=== PATIENT | female | born 1925 | race Caucasian/White ===

== ENCOUNTER 2016-03-17 11:34 | Emergency (ER) | payer MEDICARE ==
[~2016-03-17] VITALS: Ht 154.9 cm; Wt 64.0 kg
[2016-03-17 11:41] VITALS: BP 144/100; PULSE 88; RESP 16; TEMP 97.5; O2SAT 98
[2016-03-17] MEDS ORDERED: TETANUS/DIPHTHERIA TOXOID ADULT 0.5 ML VIAL IM ONE (12:00)
[2016-03-17] MEDS ORDERED: COMB0.2S EACH EYE (12:07)
[2016-03-17] MEDS ORDERED: SYNT25TA PO (12:07)
[2016-03-17] MEDS ORDERED: LATA0.002 EACH EYE (12:07)
--- NOTE | 2016-03-17 12:29 | PD ---
HPI Chief Complaint: Laceration/Skin Injury Time Seen by Provider: 12:26 Travel History International Travel<30 days: No Contact w/Intl Traveler<30days: No Traveled to known affect area: No History of Present Illness HPI 89-year-old female presents to the emergency room for evaluation of head injury after trip and fall just prior to arrival. Patient's son is with her and states she tripped either on her slippers or on the blanket and fell backwards striking her head on the aluminum door rail or the tile floor. He did not actually see the fall but was in the next room and immediately ran in. States he was able to get her back up right away and so down on the chair. There was no loss of consciousness. Patient denies significant headache, dizziness, or changes in mental status. Reports mild neck pain but denies paresthesias. She is not on blood thinners. Unknown last tetanus. Denies hip pain, back pain, and upper and lower extremity pain. PFSH Past Medical History Hx Anticoagulant Therapy: No Glaucoma: Yes Thyroid Disease: Yes Influenza Vaccination: No ?: Not Menopausal: Yes Past Surgical History Surgical History: No Previous Surgery Social History Alcohol Use: No Tobacco Use: No Substance Use: No Allergies-Medications (Allergen,Severity, Reaction): Coded Allergies: No Known Allergies (Unverified , 03/17/16) Reported Meds & Prescriptions Reported Meds & Active Scripts Active Reported Latanoprost Opth Drops (Latanoprost) 0.005% Drops 1 Drop EACH EYE HS Refrigerate until opened. Combigan Opth Drops (Brimonidine-Timolol Opth Drops) 0.2-0.5% Soln 1 Drop EACH EYE Q12HR Synthroid (Levothyroxine Sodium) 25 Mcg Tab 25 Mcg PO DAILY Review of Systems Except as stated in HPI: all other systems reviewed are Neg Physical Exam Narrative GENERAL: Well-nourished, well-developed female in no acute distress. Afebrile. Ambulatory. SKIN: Warm and dry. There is a large hematoma in the occipital scalp with a superficial abrasion. HEAD: Normocephalic. EYES: No scleral icterus. No injection or drainage. NECK: Supple, trachea midline. No JVD or lymphadenopathy. Full range of motion. No midline tenderness. MSK: Hips stable. No tenderness to palpation. No shortening or rotation of lower extremities. Data Data Last Documented VS Vital Signs Date Time Temp Pulse Resp B/P Pulse Ox O2 Delivery O2 Flow Rate FiO2 03/17/16 11:41 97.5 88 16 144/[address] Brain W/O Iv Contrast(Rout) (03/17/16 ) Ct Cerv Spine W/O Contrast (03/17/16 ) Tetanus/Diphtheria Tox Adult (Tetanus/Di (03/17/16 12:00) Wound Care (03/17/16 12:41) MDM Medical Decision Making Medical Screen Exam Complete: Yes Emergency Medical Condition: Yes Medical Record Reviewed: Yes Differential Diagnosis Head injury versus hematoma versus laceration versus abrasion versus fall Narrative Course 89-year-old female presents to the emergency room for evaluation of closed head injury after trip and fall just prior to arrival. Fall was not witnessed but son was in the next room and immediately found her. States she either tripped on her shoes or a bunched up blanket on the floor; fell backwards and struck the back of her head against the aluminum framing of the door. She was able to get up right away. There was no loss of consciousness. She denies significant headache, nausea, vomiting, retrograde amnesia, or changes in mental status. She is not on blood thinners. Physical exam is reassuring. There is a large hematoma on the occipital scalp. Full range motion of the neck with no midline tenderness. CT of the head and neck are negative for acute abnormality. Wound was thoroughly cleansed; it is a superficial abrasion. Patient updated on tetanus. Discharged with wound care instructions and told to follow up with a primary care physician or return to the emergency room for worsening symptoms. She understands and agrees to this plan. Diagnosis Primary Impression: Closed head injury Qualified Code: S09.90XA - Closed head injury, initial encounter Additional Impressions: Hematoma Fall Qualified Code: W19.XXXA - Fall, initial encounter Referrals: Primary Care Physician Patient Instructions: General Instructions, Head Injury (ED), Hematoma (ED) Additional Instructions: Rest and drink plenty of fluids. Take Tylenol with food as directed, as needed for pain. Apply ice to the affected area for 20 minutes at a time, as needed for pain and swelling. Follow-up with a primary care physician. Return to the emergency room for worsening symptoms. Disposition: 01 DISCHARGE HOME Condition: Stable Genie Arreguin Mar 17, 2016 12:29
--- NOTE | 2016-03-17 12:50 | RADHPO ---
EXAM DATE/TIME: 03/17/2016 12:05 [facility] COMPARISON: No previous studies available for comparison. INDICATIONS : Fall today, laceration to posterior head. RADIATION DOSE: 25.10 CTDIvol (mGy) MEDICAL HISTORY : None SURGICAL HISTORY : None. ENCOUNTER: Initial ACUITY: 1 day PAIN SCALE: 3/10 LOCATION: Bilateral neck TECHNIQUE: Volumetric scanning of the cervical spine was performed. Multiplanar reconstructions in the sagittal, coronal and oblique axial planes were performed. Using automated exposure control and adjustment o f the mA and/or kV according to patient size, radiation dose was kept as low as reasonably achievable to obtain optimal diagnostic quality images. FINDINGS: VERTEBRAE: Normal vertebral body height. Increased density throughout the cervical spine ALIGNMENT: No evidence of subluxation. C2-C3: The bony spinal canal is normal in size. No evidence of disc bulge or herniation. The neural forami na are bilaterally patent. C3-C4: The bony spinal canal is normal in size. No evidence of disc bulge or herniation. The neural forami na are bilaterally patent. C4-C5: The bony spinal canal is normal in size. No evidence of disc bulge or herniation. The neural forami na are bilaterally patent. C5-C6: The bony spinal canal is normal in size. No evidence of disc bulge or herniation. The neural forami na are bilaterally patent. C6-C7: The bony spinal canal is normal in size. No evidence of disc bulge or herniation. The neural forami na are bilaterally patent. C7-T1: The bony spinal canal is normal in size. No evidence of disc bulge or herniation. The neural forami na are bilaterally patent. CONCLUSION: Normal examination. Marked increased density throughout the cervical bony spine. Jake Melara MD on March 17, 2016 at 12:47 Board Certified Radiologist. This report was verified electronically.
--- NOTE | 2016-03-17 12:53 | RADHPO ---
EXAM DATE/TIME: 03/17/2016 12:05 [facility] COMPARISON: No previous studies available for comparison. INDICATIONS : Fall today, laceration to posterior head. RADIATION DOSE: 55.42 CTDIvol (mGy) MEDICAL HISTORY : None SURGICAL HISTORY : None. ENCOUNTER: Initial ACUITY: 1 day PAIN SCALE: 5/10 LOCATION: posterior head TECHNIQUE: Multiple contiguous axial images were obtained of the head. Using automated exposure control and adj ustment of the mA and/or kV according to patient size, radiation dose was kept as low as reasonably a chievable to obtain optimal diagnostic quality images. FINDINGS: Non-contrast head CT demonstrates there is a subcutaneous hematoma in the right occipital region. In tracranially, the exam is normal except for diffuse age related atrophy. There may be a tiny old lac unar infarct in the left thalamus. No subarachnoid or subdural hematoma is identified. There is no i ntraparenchymal hemorrhage. The sinuses are clear. CONCLUSION: Subuctaneous hematoma in the right occipital region. Intracranial atrophy but no evidence of acute i ntracranial hemorrhage. Bilateral lacunar infarcts left thalamus and the right caudate lobe. Jake Melara MD on March 17, 2016 at 12:47 Board Certified Radiologist. This report was verified electronically.
== END 2016-03-17 13:26 | disposition home or self-care (01) ==
LOC: PHEFT 11:34
DX: S09.90XA Unspecified injury of head, initial encounter (principal); S00.03XA Contusion of scalp, initial encounter; S00.01XA Abrasion of scalp, initial encounter; E07.9 Disorder of thyroid, unspecified; H40.9 Unspecified glaucoma; Z23 Encounter for immunization; W18.09XA Striking against other object with subsequent fall, initial encounter; Y92.89 Other specified places as the place of occurrence of the external cause
CPT/HCPCS: 70450; 72125; 90471; 90714

== ENCOUNTER 2016-03-25 15:17 | Inpatient (IN) | payer MEDICARE ==
[2016-03-25] VITALS (11 sets, daily range): BP systolic 152–193; BP diastolic 58–119; PULSE 61–90; RESP 16–20; TEMP 97.1; O2SAT 90–97
[~2016-03-25] VITALS: Ht 162.6 cm; Wt 37.5 kg
[~2016-03-25 15:17] MED LIST: COMB0.2S EACH EYE; LATA0.002 EACH EYE; SYNT25TA PO
--- NOTE | 2016-03-25 16:54 | PD ---
HPI Chief Complaint: Fall Time Seen by Provider: 16:34 Travel History International Travel<30 days: No Contact w/Intl Traveler<30days: No Traveled to known affect area: No History of Present Illness HPI 89y F with PMH of myelodysplasia s/p 2 units of transfusion 02/24/16, hypothyroidism, mitral valve repair, glaucoma presents to the ED with c/o fall and head trauma today. Pt thinks she tip and fell on left side of head. Denies any LOC. Pt has also been more sob for last 10 days. Saturating at 88- 89% on RA. States she feels more short of breath with walking and that is new. Denies any chest pain, dizziness, n/v, abdominal pain, focal weakness or numbness. Pt was seen here on 03/17/16 for a fall and had hematoma in occiput from that fall. Pt was discharged after negative CT scan and follow up with her blood physician 4 days ago. 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 PFSH Past Medical History Hx Anticoagulant Therapy: No Glaucoma: Yes Medical other: Yes (EARLY ONSET DEMENTIA) Thyroid Disease: Yes ?: Not Menopausal: Yes Social History Alcohol Use: No Tobacco Use: No Substance Use: No Allergies-Medications (Allergen,Severity, Reaction): Coded Allergies: No Known Allergies (Unverified , 03/25/16) Reported Meds & Prescriptions Reported Meds & Active Scripts Active Reported Latanoprost Opth Drops (Latanoprost) 0.005% Drops 1 Drop EACH EYE HS Refrigerate until opened. Combigan Opth Drops (Brimonidine-Timolol Opth Drops) 0.2-0.5% Soln 1 Drop EACH EYE Q12HR Synthroid (Levothyroxine Sodium) 25 Mcg Tab 25 Mcg PO DAILY Review of Systems Except as stated in HPI: all other systems reviewed are Neg Physical Exam Narrative GENERAL: 89yo F in mild distress. SKIN: Warm and dry. HEAD: mid occipital hematoma that looks old. No new hematoma. EYES: Pupils equal and round. No scleral icterus. No injection or drainage. ENT: No nasal bleeding or discharge. Mucous membranes pink and moist. NECK: Trachea midline. No JVD. CARDIOVASCULAR: Regular rate and rhythm. No murmur appreciated. RESPIRATORY: Mild bilateral crackles. Saturating at 88-89% on RA. GASTROINTESTINAL: Abdomen soft, non-tender, nondistended. No rebound tenderness or guarding. MUSCULOSKELETAL: No obvious deformities. No clubbing. No cyanosis. Trace lower ext edema. NEUROLOGICAL: Awake and alert. No obvious cranial nerve deficits. Motor grossly within normal limits. Normal speech. PSYCHIATRIC: Appropriate mood and affect; insight and judgment normal. Data Data Last Documented VS Vital Signs Date Time Temp Pulse Resp B/P Pulse Ox O2 Delivery O2 Flow Rate FiO2 03/25/16 18:23 86 20 176/76 95 03/25/16 17:45 Nasal Cannula 2 03/25/16 15:29 97.1 Orders Complete Blood Count With Diff (03/25/16 16:49) Basic Metabolic Panel (Bmp) (03/25/16 16:49) B-Type Natriuretic Peptide (03/25/16 16:49) Act Partial Throm Time (Ptt) (03/25/16 16:49) Prothrombin Time / Inr (Pt) (03/25/16 16:49) Ckmb (Isoenzyme) Profile (03/25/16 16:49) Troponin I (03/25/16 16:49) Arterial Blood Gas (Abg) (03/25/16 16:49) Iv Access Insert/Monitor (03/25/16 16:49) Electrocardiogram (03/25/16 16:49) Ecg Monitoring (03/25/16 16:49) Oximetry (03/25/16 16:49) Oxygen Administration (03/25/16 16:49) Chest, Single Ap (03/25/16 16:49) Sodium Chloride 0.9% Flush (Ns Flush) (03/25/16 17:00) Ct Brain W/O Iv Contrast(Rout) (03/25/16 ) Hydralazine Inj (Apresoline Inj) (03/25/16 18:30) Furosemide Inj (Lasix Inj) (03/25/16 18:45) Potassium Chloride (Kcl) (03/25/16 18:45) Calcium Gluconate (Calcium Gluconate) (03/25/16 18:45) Admit Order (Ed Use Only) (03/25/16 18:32) Labs Laboratory Tests Test 03/25/16 03/25/16 17:00 17:04 White Blood Count 17.2 TH/MM3 Corrected White Blood Count 16.4 TH/MM3 Red Blood Count 3.04 MIL/MM3 Hemoglobin 8.7 GM/DL Hematocrit 26.3 % Mean Corpuscular Volume 86.3 FL Mean Corpuscular Hemoglobin 28.7 PG Mean Corpuscular Hemoglobin 33.3 % Concent Red Cell Distribution Width 18.0 % Platelet Count 314 TH/MM3 Mean Platelet Volume 7.3 FL Neutrophils (%) (Auto) 70.5 % Lymphocytes (%) (Auto) 10.2 % Monocytes (%) (Auto) 14.6 % Eosinophils (%) (Auto) 0.9 % Basophils (%) (Auto) 3.8 % Neutrophils # (Auto) 12.0 TH/MM3 Lymphocytes # (Auto) 1.8 TH/MM3 Monocytes # (Auto) 2.5 TH/MM3 Eosinophils # (Auto) 0.2 TH/MM3 Basophils # (Auto) 0.7 TH/MM3 CBC Comment AUTO DIFF Differential Total Cells 100 Counted Neutrophils % (Manual) 44 % Band Neutrophils % 25 % Lymphocytes % 6 % Monocytes % 9 % Eosinophils % 1 % Neutrophils # (Manual) 13.8 TH/MM3 Metamyelocytes 8 % Myelocytes 7 % Nucleated Red Blood Cells 5 /100 WBC Differential Comment FINAL DIFF MANUAL Platelet Estimate NORMAL Platelet Morphology Comment NORMAL Prothrombin Time 11.8 SEC Prothromb Time International 1.1 RATIO Ratio Activated Partial 25.0 SEC Thromboplast Time Sodium Level 142 MEQ/L Potassium Level 3.6 MEQ/L Chloride Level 107 MEQ/L Carbon Dioxide Level 25.0 MEQ/L Anion Gap 10 MEQ/L Blood Urea Nitrogen 20 MG/DL Creatinine 0.62 MG/DL Estimat Glomerular Filtration 91 ML/MIN Rate Random Glucose 102 MG/DL Calcium Level 7.9 MG/DL Total Creatine Kinase 56 U/L Troponin I 0.09 NG/ML B-Type Natriuretic Peptide 715 PG/ML Blood Gas Puncture Site RT RADIAL Blood Gas Patient Temperature 98.6 Blood Gas HCO3 23 mmol/L Blood Gas Base Excess 0.3 mmol/L Blood Gas Oxygen Saturation 92 % Arterial Blood pH 7.50 Arterial Blood Partial 31 mmHG Pressure CO2 Arterial Blood Partial 85 mmHG Pressure O2 Arterial Blood Oxygen Content 10.5 Vol % Arterial Blood 2.9 % Carboxyhemoglobin Arterial Blood Methemoglobin 1.3 % Blood Gas Hemoglobin 8.0 G/DL Oxygen Delivery Device NASAL CANNULA Blood Gas Liter Flow 2 L/M Blood Gas Inspired Oxygen 28 % MDM Medical Decision Making Medical Screen Exam Complete: Yes Emergency Medical Condition: Yes Interpretation(s) EKG: NSR 76bpm. ST depression II, aVF, V5, V6. Q wave III. Laboratory Tests Test 03/25/16 03/25/16 17:00 17:04 White Blood Count 17.2 TH/MM3 (4.0-11.0) Corrected White Blood Count 16.4 TH/MM3 (4.0-11.0) Red Blood Count 3.04 MIL/MM3 (4.00-5.30) Hemoglobin 8.7 GM/DL (11.6-15.3) Hematocrit 26.3 % (35.0-46.0) Mean Corpuscular Volume 86.3 FL (80.0-100.0) Mean Corpuscular Hemoglobin 28.7 PG (27.0-34.0) Mean Corpuscular Hemoglobin 33.3 % Concent (32.0-36.0) Red Cell Distribution Width 18.0 % (11.6-17.2) Platelet Count 314 TH/MM3 (150-450) Mean Platelet Volume 7.3 FL (7.0-11.0) Neutrophils (%) (Auto) 70.5 % (16.0-70.0) Lymphocytes (%) (Auto) 10.2 % (9.0-44.0) Monocytes (%) (Auto) 14.6 % (0.0-8.0) Eosinophils (%) (Auto) 0.9 % (0.0-4.0) Basophils (%) (Auto) 3.8 % (0.0-2.0) Neutrophils # (Auto) 12.0 TH/MM3 (1.8-7.7) Lymphocytes # (Auto) 1.8 TH/MM3 (1.0-4.8) Monocytes # (Auto) 2.5 TH/MM3 (0-0.9) Eosinophils # (Auto) 0.2 TH/MM3 (0-0.4) Basophils # (Auto) 0.7 TH/MM3 (0-0.2) CBC Comment AUTO DIFF Differential Total Cells 100 Counted Neutrophils % (Manual) 44 % (16-70) Band Neutrophils % 25 % (0-6) Lymphocytes % 6 % (9-44) Monocytes % 9 % (0-8) Eosinophils % 1 % (0-4) Neutrophils # (Manual) 13.8 TH/MM3 (1.8-7.7) Metamyelocytes 8 % (0-1) Myelocytes 7 % (0-0) Nucleated Red Blood Cells 5 /100 WBC (0-0) Differential Comment FINAL DIFF MANUAL Platelet Estimate NORMAL (NORMAL) Platelet Morphology Comment NORMAL (NORMAL) Prothrombin Time 11.8 SEC (9.8-11.6) Prothromb Time International 1.1 RATIO Ratio Activated Partial 25.0 SEC Thromboplast Time (24.3-30.1) Sodium Level 142 MEQ/L (136-145) Potassium Level 3.6 MEQ/L (3.5-5.1) Chloride Level 107 MEQ/L (98-107) Carbon Dioxide Level 25.0 MEQ/L (21.0-32.0) Anion Gap 10 MEQ/L (5-15) Blood Urea Nitrogen 20 MG/DL (7-18) Creatinine 0.62 MG/DL (0.50-1.00) Estimat Glomerular Filtration 91 ML/MIN (>89) Rate Random Glucose 102 MG/DL (74-106) Calcium Level 7.9 MG/DL (8.5-10.1) Total Creatine Kinase 56 U/L (26-192) Troponin I 0.09 NG/ML (0.02-0.05) B-Type Natriuretic Peptide 715 PG/ML (0-100) Blood Gas Puncture Site RT RADIAL Blood Gas Patient Temperature 98.6 Blood Gas HCO3 23 mmol/L (22-26) Blood Gas Base Excess 0.3 mmol/L (-2-2) Blood Gas Oxygen Saturation 92 % (90-100) Arterial Blood pH 7.50 (7.380-7.420) Arterial Blood Partial 31 mmHG (38-42) Pressure CO2 Arterial Blood Partial 85 mmHG Pressure O2 (61-120) Arterial Blood Oxygen Content 10.5 Vol % (12.0-20.0) Arterial Blood 2.9 % (0-4) Carboxyhemoglobin Arterial Blood Methemoglobin 1.3 % (0-2) Blood Gas Hemoglobin 8.0 G/DL (12.0-16.0) Oxygen Delivery Device NASAL CANNULA Blood Gas Liter Flow 2 L/M Blood Gas Inspired Oxygen 28 % Last Impressions Chest X-Ray 03/25/16 4605 Signed Impressions: Service Date/Time: Friday, March 25, 2016 17:56 - CONCLUSION: 1. Cardiomegaly, probably with mild edema pattern and small pleural effusions. No pneumothorax. Jasmeet Gaspar MD Head CT 03/25/16 0000 Signed Impressions: Service Date/Time: Friday, March 25, 2016 17:35 - CONCLUSION: 1. No acute intracranial abnormality. Wellington Larose MD Differential Diagnosis SOB secondary to anemia vs. PNA vs. ACS vs. CHF Narrative Course 89yo F with myelodysplastic disease here with worsening sob for the last few days. Pt also with repeat fall today. Labs reviewed, WBC 16.4 from her myelodysplastic disease. H/H 8.7/26.3. Hemoglobin was 9 recently. Troponin elevated at 0.09 and BNP 715. Calcium low at 7.9, replaced orally. CXR showed cardiomegaly, probably with mild edema pattern and small pleural effusions. No PTX. Impression is new onset CHF, will give lasix 40mg IV. BP 176/76. Hydralazine was cancelled because bp decreased on its own without medication. Will monitor BP after lasix. Pt saturating at 95% on 2L NC. Feels better on oxygen. CT brain negative. Discussed with Dr. Maguire and accepted. Diagnosis Primary Impression: CHF (congestive heart failure) Qualified Code: I50.9 - Acute congestive heart failure, unspecified congestive heart failure type Admitting Information Admitting Physician Requests: Admit Magda Ferrell DO Mar 25, 2016 16:54
[2016-03-25] MEDS ORDERED: SODIUM CHLORIDE 0.9% FLUSH 5 ML FLUSH IVF PRN ×2 (17:00→20:00)
[2016-03-25 17:10] LABS: BASOPHIL # 0.7 TH/MM3 (0-0.2); BASOPHIL % 3.8 % (0.0-2.0); EOSINOPHIL # 0.2 TH/MM3 (0-0.4); EOSINOPHIL % 0.9 % (0.0-4.0); HEMATOCRIT 26.3 % (35.0-46.0); LYMPH % 10.2 % (9.0-44.0); LYMPHOCYTE # 1.8 TH/MM3 (1.0-4.8); MEAN CELL VOLUME 86.3 FL (80.0-100.0); MEAN CORPUSCULAR HEMOGLOBIN 28.7 PG (27.0-34.0); MEAN CORPUSCULAR HGB CONC 33.3 % (32.0-36.0); MONO % 14.6 % (0.0-8.0); NEUT % 70.5 % (16.0-70.0); PLATELET COUNT 314 TH/MM3 (150-450); RED BLOOD COUNT 3.04 MIL/MM3 (4.00-5.30); WHITE BLOOD COUNT 17.2 TH/MM3 (4.0-11.0)
[2016-03-25 17:11] LABS: HEMO FLAGS AUTO DIFF
[2016-03-25 17:13] LABS: BLOOD GAS BASE EXCESS 0.3 mmol/L (-2-2); BLOOD GAS CARBOXYHEMOGLOBIN 2.9 % (0-4); BLOOD GAS HCO3 23 mmol/L (22-26); BLOOD GAS METHEMOGLOBIN 1.3 % (0-2); BLOOD GAS O2 HGB SATURATION 92 % (90-100); BLOOD GAS OXYGEN CONTENT 10.5 Vol % (12.0-20.0); BLOOD GAS PCO2 31 mmHG (38-42); BLOOD GAS PO2 85 mmHG (61-120); CRITICAL VALUE NO; DRAW SITE RT RADIAL; FIO2 28 %; LITER FLOW 2 L/M; NUMBER OF ARTERIAL PUNCTURES 1; OXYGEN DEVICE NASAL CANNULA; STAT YES; TEMP CORR TO 98.6; ULNAR PULSE PRESENT
[2016-03-25 17:21] LABS: POTASSIUM 3.6 MEQ/L (3.5-5.1)
[2016-03-25 17:25] LABS: INTERNATIONAL NORMALIZED RATIO 1.1 RATIO; PROTHROMBIN TIME - PATIENT 11.8 SEC (9.8-11.6)
[2016-03-25 17:35] LABS: BANDS 25 % (0-6); CORRECTED NUCLEATED RBC 5 /100 WBC (0-0); CORRECTED WBC 16.4 TH/MM3 (4.0-11.0); EOSINOPHILS 1 % (0-4); METAMYELOCYTES 8 % (0-1); MYELOCYTES 7 % (0-0); NEUTROPHIL # MANUAL DIFF 13.8 TH/MM3 (1.8-7.7); POLYS (SEG NEUTROPHILS) 44 % (16-70); WBC DIFF SAMPLE 100
[2016-03-25 17:38] LABS: PLATELET ESTIMATE SMEAR NORMAL (NORMAL); PLATELET MORPHOLOGY NORMAL (NORMAL); SCAN/DIFF FINAL DIFF MANUAL
--- NOTE | 2016-03-25 17:56 | RADHPO ---
EXAM DATE/TIME: 03/25/2016 17:35 [facility] COMPARISON: CT CERVICAL SPINE W/O CONTRAST, March 17, 2016, 12:05. INDICATIONS : Fall, cephalgia. RADIATION DOSE: 55.77 CTDIvol (mGy) MEDICAL HISTORY : None SURGICAL HISTORY : None. ENCOUNTER: Initial ACUITY: 1 day PAIN SCALE: 5/10 LOCATION: cranial TECHNIQUE: Multiple contiguous axial images were obtained of the head. Using automated exposure control and adj ustment of the mA and/or kV according to patient size, radiation dose was kept as low as reasonably a chievable to obtain optimal diagnostic quality images. FINDINGS: CEREBRUM: The ventricles are normal for age. No evidence of midline shift, mass lesion, hemorrhage or acute in farction. No extra-axial fluid collections are seen. POSTERIOR FOSSA: The cerebellum and brainstem are intact. The 4th ventricle is midline. The cerebellopontine angle i s unremarkable. EXTRACRANIAL: The visualized portion of the orbits is intact. SKULL: The calvaria is intact. No evidence of skull fracture. CONCLUSION: 1. No acute intracranial abnormality. Wellington Larose MD on March 25, 2016 at 17:50 Board Certified Radiologist. This report was verified electronically.
--- NOTE | 2016-03-25 18:23 | RADHPO ---
EXAM DATE/TIME: 03/25/2016 17:56 [facility] COMPARISON: No previous studies available for comparison. INDICATIONS : Fell. Shortness of breath. MEDICAL HISTORY : Dementia SURGICAL HISTORY : Mitral valve replacement ENCOUNTER: Initial ACUITY: 1 day PAIN SCORE: 2/10 LOCATION: Bilateral chest FINDINGS: A single view of the chest demonstrates small pleural effusions, left greater than right. Scattered s ubsegmental air space disease in the lungs. Cardiomegaly. No pneumothorax. CONCLUSION: 1. Cardiomegaly, probably with mild edema pattern and small pleural effusions. No pneumothorax. Jasmeet Gaspar MD on March 25, 2016 at 18:20 Board Certified Radiologist. This report was verified electronically.
[2016-03-25] MEDS ORDERED: hydrALAZINE HCL 20 MG/ML VIAL IV PUSH ONE (18:30)
[2016-03-25] MEDS ORDERED: POTASSIUM CHLORIDE 20 MEQ CONTROLLED RELEASE TAB PO ONE (18:45)
[2016-03-25] MEDS ORDERED: FUROSEMIDE 40 MG/4 ML VIAL IV PUSH ONE (18:45)
[2016-03-25] MEDS ORDERED: CALCIUM GLUCONATE 500 MG TAB PO ONE (18:45)
[2016-03-25] MEDS ORDERED: cloNIDine HCL 0.1 MG TAB PO PRN (20:00)
[2016-03-25] MEDS ORDERED: PILL SPLITTER OTHER PRN (20:15)
[2016-03-25] MEDS: LISINOPRIL 10 MG TAB PO SCH (21:40)
[2016-03-25] MEDS: SODIUM CHLORIDE 0.9% FLUSH 5 ML FLUSH IVF SCH (21:41)
[2016-03-25] MEDS: METOPROLOL TARTRATE 25 MG TAB PO SCH (21:41)
[2016-03-25 21:48] LABS: BLOOD, URINE TRACE (NEG); GLUCOSE,URINE NEG (NEG); KETONE, URINE NEG (NEG); NITRITE,URINE NEG (NEG); PH, URINE 5.5 (5.0-8.5)
[2016-03-25 22:02] LABS: METHOD OF COLLECTION CATH; URINE COLOR STRAW (YELLW/STRAW)
[2016-03-25 22:05] LABS: MUCUS URINE RARE /lpf (OCC)
[2016-03-25 22:06] LABS: COMMENT (UR) CATH-CULT NOT IND; CULTURE IF INDICATED CATH CULTURE NOT IND; RBC, URINE 0-3 /hpf (0-3)
[2016-03-26] VITALS (7 sets, daily range): BP systolic 104–172; BP diastolic 71–81; PULSE 54–90; RESP 17–18; TEMP 96.4–98.6; O2SAT 95–100
[2016-03-26] MEDS ORDERED: IOHEXOL 350 MG/ML 10 ML VIAL (for RAD DIAG) IV ONE (02:08)
--- NOTE | 2016-03-26 02:23 | RADHPO ---
EXAM DATE/TIME: 03/26/2016 01:52 [facility] COMPARISON: No previous studies available for comparison. INDICATIONS : Shortness of breath. Elevated d-dimer. IV CONTRAST: 75 cc Omnipaque 350 (iohexol) IV RADIATION DOSE: 5.50 CTDIvol (mGy) MEDICAL HISTORY : None SURGICAL HISTORY : Mitral valve. ENCOUNTER: Initial ACUITY: 2 weeks PAIN SCALE: 0/10 LOCATION: Bilateral chest TECHNIQUE: Volumetric scanning of the chest was performed using a pulmonary embolism protocol MIP images were re constructed. Using automated exposure control and adjustment of the mA and/or kV according to patien t size, radiation dose was kept as low as reasonably achievable to obtain optimal diagnostic quality images. FINDINGS: PULMONARY ARTERIES: No filling defects are seen in the pulmonary arteries through the segmental level. The pulmonary ximena sawyer are prominent bilaterally. LUNGS: There is a patchy interstitial infiltrate in the right upper lung. There is evidence of central lobar emphysema bilaterally. Multiple scattered subcentimeter pulmonary nodules are noted in the periphera l right upper lung as well as right lower lung. The largest pulmonary nodule measures about 7 mm in t he right lower lung. PLEURAE: Small bilateral pleural effusions are noted. MEDIASTINUM: There is good visualization of the great vessels of the middle mediastinum. No evidence of mediastin al or hilar adenopathy/mass. The heart size is enlarged. MUSCULOSKELETAL: There appears to be some degree of abnormal sclerosis involving the bony structures diffusely. MISCELLANEOUS: There is diffuse enlargement of the spleen measuring 13.5 cm. CONCLUSION: 1. No evidence of pulmonary embolism. Prominent pulmonary arteries bilaterally most likely related to COPD. 2. Central lobar emphysema bilaterally characteristic for COPD. 3. Scattered interstitial infiltrates in the right upper lung. 4. Multiple subcentimeter scattered pulmonary nodules in the right upper lung and right lower lung. T he largest pulmonary nodule measures 7 mm in the right lower lung. 5. Small bilateral effusions. 6. Splenomegaly of unknown etiology. 7. Abnormal appearing sclerosis of all the bony structures. This finding is nonspecific and can be se en with a metabolic disorder such as chronic renal disease versus neoplastic disease. If clinically i ndicated, a PET CT is recommended for further evaluation. 8. Cardiomegaly. Zachery Villaseñor MD on March 26, 2016 at 2:13 Board Certified Radiologist. This report was verified electronically.
[2016-03-26 06:37] LABS: AUTOMATED NEUTROPHIL # 8.9 TH/MM3 (1.8-7.7); BASOPHIL % 0.2 % (0.0-2.0); EOSINOPHIL # 0.2 TH/MM3 (0-0.4); EOSINOPHIL % 1.2 % (0.0-4.0); HEMATOCRIT 23.8 % (35.0-46.0); LYMPH % 11.1 % (9.0-44.0); LYMPHOCYTE # 1.4 TH/MM3 (1.0-4.8); MEAN CELL VOLUME 87.5 FL (80.0-100.0); MEAN CORPUSCULAR HEMOGLOBIN 28.5 PG (27.0-34.0); MEAN CORPUSCULAR HGB CONC 32.5 % (32.0-36.0); MONO % 15.6 % (0.0-8.0); NEUT % 71.9 % (16.0-70.0); PLATELET COUNT 262 TH/MM3 (150-450); RED BLOOD COUNT 2.72 MIL/MM3 (4.00-5.30); RED CELL DISTRIBUTION WIDTH 17.6 % (11.6-17.2); WHITE BLOOD COUNT 12.5 TH/MM3 (4.0-11.0)
[2016-03-26 06:43] LABS: HEMO FLAGS AUTO DIFF
[2016-03-26 06:48] LABS: POTASSIUM 3.8 MEQ/L (3.5-5.1)
[2016-03-26 06:51] LABS: BICARBONATE 27.9 MEQ/L (21.0-32.0)
[2016-03-26 07:25] LABS: BANDS 19 % (0-6); CORRECTED NUCLEATED RBC 5 /100 WBC (0-0); CORRECTED WBC 11.9 TH/MM3 (4.0-11.0); METAMYELOCYTES 2 % (0-1); MYELOCYTES 3 % (0-0); NEUTROPHIL # MANUAL DIFF 9.5 TH/MM3 (1.8-7.7); POLYS (SEG NEUTROPHILS) 56 % (16-70); WBC DIFF SAMPLE 100
[2016-03-26 07:26] LABS: SCAN/DIFF FINAL DIFF MANUAL
[2016-03-26 09:40] LABS: HDL CHOLESTEROL 40.4 MG/DL (40.0-60.0)
[2016-03-26] MEDS: BRIMONIDINE TARTRATE 0.2% OPHT SOLN 5 ML BTL EACH EYE SCH ×2 (10:00→21:00)
[2016-03-26] MEDS: ASPIRIN 81 MG CHEW TAB CHEW SCH (10:30)
[2016-03-26] MEDS: LEVOTHYROXINE SODIUM 25 MCG TAB PO SCH (10:31)
[2016-03-26] MEDS: SODIUM CHLORIDE 0.9% FLUSH 5 ML FLUSH IVF SCH ×2 (10:31→21:00)
[2016-03-26] MEDS: LISINOPRIL 10 MG TAB PO SCH (10:31)
[2016-03-26] MEDS: METOPROLOL TARTRATE 25 MG TAB PO SCH ×2 (10:31→21:00)
[2016-03-26] MEDS: TIMOLOL MALEATE 0.5% OPHT SOLN 5 ML BTL EACH EYE SCH ×2 (10:45→22:45)
--- NOTE | 2016-03-26 14:51 | HHI.HP ---
[facility] [place] Non-Staff Admission Diagnosis New onset CHF Diagnoses: (1) CHF (congestive heart failure) Diagnosis: Principal (2) Elevated troponin Diagnosis: Principal (3) Hypertensive urgency Diagnosis: Principal (4) Leukocytosis Diagnosis: Principal (5) Anemia Diagnosis: Principal (6) H/O fall Diagnosis: Principal (7) Dementia Diagnosis: Principal Chief Complaint: SOB, balance issues Travel History International Travel<30 Days: No Contact w/Intl Traveler <30 Da: No Traveled to Known Affected Are: No History of Present Illness 89-year-old female with history of dementia, mitral valve replacement , myelodysplasia, hypothyroidism, glaucoma is admitted for heart failure. Patient states she has been short of breath; admits to feeling stuffy. He spoke with her son and [id number]. Son states she has become increasingly short of breath over the past few days. She has no history of heart disease. She had a fall on 03/17/16 and was seen in the ED. CT showed hematoma. Patient recently moved down from [facility] and is living with her son. She was initially doing well, but [id number] states the patient's legs have been hurting and she's been tired and more confused and her balance is worse. She states she has not been eating much at home. Patient's son states that she sees Dr. Burgos and hemoglobin was 6.6 a week prior to transfusion of 2 units blood on 02/24/16. Hemoglobin was 9.0 this past . Review of Systems ROS Limitations: Altered Mental Status (dementia) Other ROS x 10 negative unless otherwise indicated. Past Family Social History Past Medical History Myelodysplasia Hypothyroidism Glaucoma Dementia Past Surgical History Appendectomy 1935 Hysterectomy 1958 (fibroids) Mitral valve replacement approximately 15 years ago due to leaky valve. Reported Medications Latanoprost Opth Drops (Latanoprost) 0.005% Drops 1 Drop EACH EYE HS Refrigerate until opened. Combigan Opth Drops (Brimonidine-Timolol Opth Drops) 0.2-0.5% Soln 1 Drop EACH EYE Q12HR Synthroid (Levothyroxine Sodium) 25 Mcg Tab 25 Mcg PO DAILY Allergies: Coded Allergies: No Known Allergies (Unverified , 03/25/16) Family History Father at age 93. Mother at age of 87. Parents were healthy. Social History Patient's 2 years ago. EMR indicates no history of alcohol use, tobacco use, or substance use. Physical Exam Vital Signs Vital Signs Date Time Temp Pulse Resp B/P Pulse Ox O2 Delivery O2 Flow Rate FiO2 03/26/16 12:19 54 03/26/16 12:00 98.1 56 18 128/80 100 03/26/16 08:00 97.2 65 17 136/76 95 03/26/16 04:00 97.3 57 18 172/77 100 03/26/16 00:00 97.5 57 18 167/72 98 03/26/16 00:00 56 03/25/16 23:30 68 16 152/63 97 Nasal Cannula 03/25/16 22:30 68 16 03/25/16 22:30 61 16 152/58 97 Nasal Cannula 03/25/16 20:38 94 Nasal Cannula 2.00 03/25/16 20:00 74 16 176/83 94 Nasal Cannula 03/25/16 19:30 75 18 184/88 95 Nasal Cannula 03/25/16 19:00 80 18 193/92 97 Nasal Cannula 2 03/25/16 19:00 18 97 Nasal Cannula 2 03/25/16 19:00 80 8 03/25/16 18:23 86 20 176/76 95 03/25/16 17:45 76 20 175/78 Nasal Cannula 2 03/25/16 17:00 95 03/25/16 17:00 Nasal Cannula 2 03/25/16 16:45 90 20 181/91 91 03/25/16 15:29 97.1 82 16 165/119 90 Physical Exam GENERAL: This is a thin elderly well-developed patient, in no apparent distress. SKIN: No rashes, ecchymoses or lesions. Cool and dry. HEAD: Atraumatic. Normocephalic. EYES: No scleral icterus. No injection or drainage. NECK: Trachea midline. CARDIOVASCULAR: Regular rate and rhythm. RESPIRATORY: Diminished breath sounds at the bases. Respiratory rate normal. GASTROINTESTINAL: Abdomen soft, non-tender, nondistended. MUSCULOSKELETAL: No lower extremity edema bilaterally. 2+ DP pulses bilaterally. NEUROLOGICAL: Awake and alert. Disoriented. Patient does not know the month or year and cannot recall the president's name. Normal speech. Laboratory Laboratory Tests Test 03/25/16 03/25/16 03/25/16 03/25/16 17:00 17:04 20:55 21:35 White Blood Count 17.2 Corrected White Blood Count 16.4 Red Blood Count 3.04 Hemoglobin 8.7 Hematocrit 26.3 Mean Corpuscular Volume 86.3 Mean Corpuscular Hemoglobin 28.7 Mean Corpuscular Hemoglobin 33.3 Concent Red Cell Distribution Width 18.0 Platelet Count 314 Mean Platelet Volume 7.3 Neutrophils (%) (Auto) 70.5 Lymphocytes (%) (Auto) 10.2 Monocytes (%) (Auto) 14.6 Eosinophils (%) (Auto) 0.9 Basophils (%) (Auto) 3.8 Neutrophils # (Auto) 12.0 Lymphocytes # (Auto) 1.8 Monocytes # (Auto) 2.5 Eosinophils # (Auto) 0.2 Basophils # (Auto) 0.7 CBC Comment AUTO DIFF Differential Total Cells 100 Counted Neutrophils % (Manual) 44 Band Neutrophils % 25 Lymphocytes % 6 Monocytes % 9 Eosinophils % 1 Neutrophils # (Manual) 13.8 Metamyelocytes 8 Myelocytes 7 Nucleated Red Blood Cells 5 Differential Comment FINAL DIFF MANUAL Platelet Estimate NORMAL Platelet Morphology Comment NORMAL Prothrombin Time 11.8 Prothromb Time International 1.1 Ratio Activated Partial 25.0 Thromboplast Time Sodium Level 142 Potassium Level 3.6 Chloride Level 107 Carbon Dioxide Level 25.0 Anion Gap 10 Blood Urea Nitrogen 20 Creatinine 0.62 Estimat Glomerular Filtration 91 Rate Random Glucose 102 Calcium Level 7.9 Total Creatine Kinase 56 Troponin I 0.09 B-Type Natriuretic Peptide 715 Blood Gas Puncture Site RT RADIAL Blood Gas Patient Temperature 98.6 Blood Gas HCO3 23 Blood Gas Base Excess 0.3 Blood Gas Oxygen Saturation 92 Arterial Blood pH 7.50 Arterial Blood Partial 31 Pressure CO2 Arterial Blood Partial 85 Pressure O2 Arterial Blood Oxygen Content 10.5 Arterial Blood 2.9 Carboxyhemoglobin Arterial Blood Methemoglobin 1.3 Blood Gas Hemoglobin 8.0 Oxygen Delivery Device NASAL CANNULA Blood Gas Liter Flow 2 Blood Gas Inspired Oxygen 28 D-Dimer Quantitative (PE/DVT) 1.37 Urine Collection Type CATH Urine Color STRAW Urine Turbidity CLEAR Urine pH 5.5 Urine Specific Langdon 1.007 Urine Protein NEG Urine Glucose (UA) NEG Urine Ketones NEG Urine Occult Blood TRACE Urine Nitrite NEG Urine Bilirubin NEG Urine Leukocyte Esterase NEG Urine RBC 0-3 Urine Mucus RARE Microscopic Urinalysis Comment CATH-CULT NOT IND Test 03/25/16 03/26/16 23:30 06:05 Total Creatine Kinase 52 50 Troponin I 0.10 0.07 Thyroid Stimulating Hormone 4.150 3rd Gen White Blood Count 12.5 Corrected White Blood Count 11.9 Red Blood Count 2.72 Hemoglobin 7.7 Hematocrit 23.8 Mean Corpuscular Volume 87.5 Mean Corpuscular Hemoglobin 28.5 Mean Corpuscular Hemoglobin 32.5 Concent Red Cell Distribution Width 17.6 Platelet Count 262 Mean Platelet Volume 7.1 Neutrophils (%) (Auto) 71.9 Lymphocytes (%) (Auto) 11.1 Monocytes (%) (Auto) 15.6 Eosinophils (%) (Auto) 1.2 Basophils (%) (Auto) 0.2 Neutrophils # (Auto) 8.9 Lymphocytes # (Auto) 1.4 Monocytes # (Auto) 2.0 Eosinophils # (Auto) 0.2 Basophils # (Auto) 0.0 CBC Comment AUTO DIFF Differential Total Cells 100 Counted Neutrophils % (Manual) 56 Band Neutrophils % 19 Lymphocytes % 5 Monocytes % 15 Neutrophils # (Manual) 9.5 Metamyelocytes 2 Myelocytes 3 Nucleated Red Blood Cells 5 Differential Comment FINAL DIFF MANUAL Sodium Level 141 Potassium Level 3.8 Chloride Level 104 Carbon Dioxide Level 27.9 Anion Gap 9 Blood Urea Nitrogen 17 Creatinine 0.64 Estimat Glomerular Filtration 87 Rate Random Glucose 99 Calcium Level 7.6 Triglycerides Level 159 Cholesterol Level 142 LDL Cholesterol 70 HDL Cholesterol 40.4 Cholesterol/HDL Ratio 3.51 Date/Time Procedure Status Source Growth 03/25/16 20:55 Aerobic Blood Culture - Preliminary Resulted Blood Peripheral NO GROWTH IN 1 DAY 03/25/16 20:55 Anaerobic Blood Culture - Preliminary Resulted Blood Peripheral NO GROWTH IN 1 DAY 03/25/16 20:45 Influenza Types A,B Antigen (DOC) - Final Complete Nasal Aspirate NEGATIVE FOR FLU A AND B ANTIGEN.... Result Diagram: 03/26/16 0605 03/26/16 [address] Angiography 03/26/16 0000 Signed Impressions: Service Date/Time: Saturday, March 26, 2016 01:52 - CONCLUSION: 1. No evidence of pulmonary embolism. Prominent pulmonary arteries bilaterally most likely related to COPD. 2. Central lobar emphysema bilaterally characteristic for COPD. 3. Scattered interstitial infiltrates in the right upper lung. 4. Multiple subcentimeter scattered pulmonary nodules in the right upper lung and right lower lung. The largest pulmonary nodule measures 7 mm in the right lower lung. 5. Small bilateral effusions. 6. Splenomegaly of unknown etiology. 7. Abnormal appearing sclerosis of all the bony structures. This finding is nonspecific and can be seen with a metabolic disorder such as chronic renal disease versus neoplastic disease. If clinically indicated, a PET CT is recommended for further evaluation. 8. Cardiomegaly. Zacheyr Villaseñor MD Chest X-Ray 03/25/16 1649 Signed Impressions: Service Date/Time: Friday, March 25, 2016 17:56 - CONCLUSION: 1. Cardiomegaly, probably with mild edema pattern and small pleural effusions. No pneumothorax. Jasmeet Gaspar MD Head CT 03/25/16 0000 Signed Impressions: Service Date/Time: Friday, March 25, 2016 17:35 - CONCLUSION: 1. No acute intracranial abnormality. Wellington Larose MD Assessment and Plan Assessment and Plan 89-year-old female with: CHF: Patient with increasing SOB. BNP 715. EKG personally interpreted with sinus rhythm, possible left ventricular hypertrophy. Chest x-ray personally interpreted with small pleural effusions, cardiomegaly, and possible mild edema pattern. -Patient given 40 mg IV Lasix. No further diuretic at this time. -Daily 81 mg aspirin started. -Echo with mild focal basal hypertrophy of the septum. Systolic function normal with EF of 55-60%. PA peak pressure 71 mmHg. Trace to mild regurgitation of the aortic valve and mitral valve. Tricuspid valve with mild regurgitation. -Telemetry -Lipid profile with good LDL of 70, HDL 40.4. Triglycerides only mildly elevated. Elevated troponin: Troponin 0.09-->0.10-->0.07. Likely demand related to CHF. Hypertensive urgency: Highest BP 193/92 in ED, likely related to CHF. Patient given hydralazine the ED. Improved with medications. -Monitor BP. -Metoprolol and Lisinopril started. -Clonidine as needed. Leukocytosis: 17.2--> 12.5. Likely related to CHF. -Monitor CBC Anemia: Patient has history of myelodysplasia. Hemoglobin 8.7-->7.7. -Monitor CBC and transfuse if Hb < 7.0 provided son consents. Dementia/Fall: Patient's son states that prior to patient coming down to live with him he was unaware of the degree of her dementia which was likely being downplayed by her when he was alive. -PT eval and treat -SNF placement to which son is agreeable. Hypothyroidism: Continue Synthroid. TSH elevated at 4.150. -Order free T3 and T4. DVT prevention; TEDs/SCDs. manager winter to arrange SNF placement. Written by Lexi Marroquin PA-C acting as scribe for Dr. Maguire on 03/26/16 at ~ 1440. The documentation accurately reflects the work and decisions performed face-to- face by me Dr. Maguire on 03/26/16 at ~1440. Code Status DNR confirmed with patient's son. Discussed Condition With patient's son and [id number]. Physician Certification 2 Midnight Certification Type: Admission for Inpatient Services Order for Inpatient Services The services are ordered in accordance with Medicare regulations or non- Medicare payer requirements, as applicable. In the case of services not specified as inpatient-only, they are appropriately provided as inpatient services in accordance with the 2-midnight benchmark. Estimated LOS (days): 2 days is the estimated time the patient will need to remain in the hospital, assuming treatment plan goals are met and no additional complications. Post-Hospital Plan: SNF Problem Qualifiers (1) CHF (congestive heart failure): Qualified Code: I50.9 - Acute congestive heart failure, unspecified congestive heart failure type Lexi Marroquin Mar 26, 2016 14:51
--- NOTE | 2016-03-26 15:50 | EC ---
Study Study Date:03/26/2016 STUDY CONCLUSIONS SUMMARY - Left ventricle: The cavity size was normal. There was mild focal basal hypertrophy of the septum. Systolic function was normal. The estimated ejection fraction was in the range of 55% to 60%. Wall motion was normal; there were no regional wall motion abnormalities. - Tricuspid valve: Mild regurgitation. - Pulmonary arteries: PA peak pressure: 71mm Hg (S). If LV function is below 40, please consider prescribing an ACEI or ARB or document rationale for non-use. PROCEDURE DATA STUDY STATUS: Elective. Procedure: Transthoracic echocardiography. Image quality was good. Scanning was performed from the parasternal, apical, and subcostal acoustic windows. Study completion: The patient tolerated the procedure well. Transthoracic echocardiography. M-mode, complete 2D, complete spectral Doppler, and color Doppler. Patient status: Inpatient. CARDIAC ANATOMY LEFT VENTRICLE: The cavity size was normal. There was mild focal basal hypertrophy of the septum. Systolic function was normal. The estimated ejection fraction was in the range of 55% to 60%. Wall motion was normal; there were no regional wall motion abnormalities. AORTIC VALVE: Trileaflet; normal thickness leaflets. Doppler: Transvalvular velocity was within the normal range. There was no stenosis. Trace to mild regurgitation. AORTA: Aortic root: The aortic root was normal in size. MITRAL VALVE: Structurally normal valve. Doppler: Transvalvular velocity was within the normal range. There was no evidence for stenosis. Trace to mild regurgitation. Valve area by pressure half-time: 3.61cm^2. LEFT ATRIUM: The atrium was normal in size. RIGHT VENTRICLE: The cavity size was normal. Wall thickness was normal. PULMONIC VALVE: Doppler: Transvalvular velocity was within the normal range. There was no evidence for stenosis. No regurgitation. TRICUSPID VALVE: Structurally normal valve. Doppler: Transvalvular velocity was within the normal range. Mild regurgitation. PULMONARY ARTERY: The main pulmonary artery was normal-sized. Systolic pressure was within the normal range. RIGHT ATRIUM: The atrium was normal in size. PERICARDIUM: There was no pericardial effusion. SYSTEMIC VEINS: Inferior vena cava: The vessel was normal in size. BASIC MEASUREMENTS ADULT Normal Left ventricle LV internal dimension, ED, chordal level, *42.9 mm 43-52 PLAX LV internal dimension, ES, chordal level, 32.4 mm 23-38 PLAX Fractional shortening, chordal level, PLAX *24 % >29 LV posterior wall thickness, ED 10.4 mm IVS/LVPW ratio, ED 1.21 <1.3 Ventricular septum Septal thickness, ED 12.6 mm Aortic valve Leaflet separation 19 mm 15-26 Right ventricle RV internal dimension, ED, PLAX 21.9 mm 19-38 BASIC MEASUREMENTS ADULT Normal Aortic valve Leaflet separation 19 mm 15-26 Aorta Root diameter, ED 30 mm 20-37 Left atrium Anterior-posterior dimension, ES 38 mm 19-40 LA/aortic root ratio 1.27 DOPPLER MEASUREMENTS ADULT Normal Main pulmonary artery Pressure, S *71 mm Hg =30 Aortic valve Regurgitant velocity, ED 415 cm/s Regurgitant deceleration 2570 cm/s^2 Regurgitant pressure half-time 473 ms Regurgitant gradient, ED 69 mm Hg Mitral valve Pressure half-time 61 ms Valve area, pressure half-time 3.61 cm^2 Tricuspid valve Regurgitant peak velocity 391 cm/s Peak RV-RA gradient, S 61 mm Hg Maximal regurgitant velocity 391 cm/s Systemic veins Estimated CVP 10 mm Hg Right ventricle RV pressure, S *71 mm Hg <30 LEGEND: Mean values are shown as u=mean value. Asterisk (*) barraza values outside specified normal range. Prepared and signed by Mindi Ferreira [id number]
--- NOTE | 2016-03-26 16:36 | EKG ---
Date Performed: 03/25/2016 Time Performed: 17:00:46 PTAGE: 89 years EKG: Sinus rhythm Possible left ventricular hypertrophy Inferior/lateral ST-T changes are probably due to ventricular hypertrophy Abnormal ECG NO PREVIOUS TRACING DOCTOR: Mindi Ferreira Interpretating Date/Time 03/26/2016 16:34:03
[2016-03-26] MEDS: LATANOPROST 0.005% OPHT SOLN 2.5 ML BTL EACH EYE SCH (21:00)
[2016-03-27] VITALS (7 sets, daily range): BP systolic 132–217; BP diastolic 78–85; PULSE 59–97; RESP 17–20; TEMP 95.1–98.1; O2SAT 96–100
[2016-03-27] MEDS ORDERED: HALOPERIDOL LACTATE 5 MG/ML AMP IM PRN (00:30)
[2016-03-27] MEDS: LEVOTHYROXINE SODIUM 25 MCG TAB PO SCH (06:00)
[2016-03-27] MEDS: SODIUM CHLORIDE 0.9% FLUSH 5 ML FLUSH IVF SCH ×2 (09:00→19:20)
[2016-03-27 09:16] LABS: AUTOMATED NEUTROPHIL # 8.1 TH/MM3 (1.8-7.7); BASOPHIL % 0.4 % (0.0-2.0); EOSINOPHIL # 0.1 TH/MM3 (0-0.4); EOSINOPHIL % 1.2 % (0.0-4.0); HEMATOCRIT 22.5 % (35.0-46.0); LYMPH % 12.1 % (9.0-44.0); LYMPHOCYTE # 1.3 TH/MM3 (1.0-4.8); MEAN CELL VOLUME 87.4 FL (80.0-100.0); MEAN CORPUSCULAR HEMOGLOBIN 28.1 PG (27.0-34.0); MEAN CORPUSCULAR HGB CONC 32.1 % (32.0-36.0); MONO % 13.6 % (0.0-8.0); NEUT % 72.7 % (16.0-70.0); PLATELET COUNT 261 TH/MM3 (150-450); RED BLOOD COUNT 2.58 MIL/MM3 (4.00-5.30)
[2016-03-27 09:19] LABS: HEMO FLAGS AUTO DIFF
[2016-03-27 09:48] LABS: BANDS 10 % (0-6); CORRECTED NUCLEATED RBC 4 /100 WBC (0-0); EOSINOPHILS 3 % (0-4); METAMYELOCYTES 4 % (0-1); MYELOCYTES 3 % (0-0); NEUTROPHIL # MANUAL DIFF 7.3 TH/MM3 (1.8-7.7); POLYS (SEG NEUTROPHILS) 49 % (16-70); WBC DIFF SAMPLE 100
[2016-03-27 09:49] LABS: SCAN/DIFF FINAL DIFF MANUAL; TEARDROP RBCS 1+ (NORMAL)
[2016-03-27] MEDS: METOPROLOL TARTRATE 25 MG TAB PO SCH ×2 (10:13→20:20)
[2016-03-27] MEDS: ASPIRIN 81 MG CHEW TAB CHEW SCH (10:13)
[2016-03-27] MEDS: LISINOPRIL 10 MG TAB PO SCH (10:13)
[2016-03-27] MEDS: BRIMONIDINE TARTRATE 0.2% OPHT SOLN 5 ML BTL EACH EYE SCH ×2 (10:16→20:19)
[2016-03-27 10:19] LABS: BICARBONATE 30.1 MEQ/L (21.0-32.0)
[2016-03-27] MEDS: TIMOLOL MALEATE 0.5% OPHT SOLN 5 ML BTL EACH EYE SCH ×2 (10:19→20:19)
[2016-03-27 10:20] LABS: POTASSIUM 3.7 MEQ/L (3.5-5.1)
[2016-03-27 13:23] LABS: FREE T3 1.27 PG/ML (2.18-3.98); FREE T4 1.15 NG/DL (0.76-1.46)
--- NOTE | 2016-03-27 14:28 | HHI.PR ---
Subjective Remarks Patient evaluated this morning. Follow-up for dementia, CHF. Patient goes on talking about her glasses. No acute complaints. Objective Vitals Vital Signs Date Time Temp Pulse Resp B/P Pulse Ox O2 Delivery O2 Flow Rate FiO2 03/27/16 12:00 98.1 88 20 136/81 97 03/27/16 08:00 97.6 97 18 143/78 96 03/27/16 00:00 96.8 61 20 217/84 99 03/26/16 20:00 60 03/26/16 20:00 96.4 60 18 166/81 100 03/26/16 20:00 98 Nasal Cannula 2.00 03/26/16 20:00 Nasal Cannula 2.00 03/26/16 16:00 98.6 90 17 104/71 95 I/O 03/26/16 03/26/16 03/26/16 03/27/16 03/27/16 03/27/16 07:00 15:00 23:00 07:00 15:00 23:00 Intake Total 120 ml 240 ml 80 ml 240 ml Output Total 1000 ml Balance -880 ml 240 ml 80 ml 240 ml Intake Oral 120 ml 240 ml 80 ml 240 ml IV Total 0 ml 0 ml Output Urine Total 1000 ml Bladder Scan Volume Amount 206 ml 399 ml 240 ml 399 ml # Voids 2 # Bowel Movements 0 0 Result Diagram: 03/27/16 0910 03/27/16 [address] Angiography 03/26/16 0000 Signed Impressions: Service Date/Time: Saturday, March 26, 2016 01:52 - CONCLUSION: 1. No evidence of pulmonary embolism. Prominent pulmonary arteries bilaterally most likely related to COPD. 2. Central lobar emphysema bilaterally characteristic for COPD. 3. Scattered interstitial infiltrates in the right upper lung. 4. Multiple subcentimeter scattered pulmonary nodules in the right upper lung and right lower lung. The largest pulmonary nodule measures 7 mm in the right lower lung. 5. Small bilateral effusions. 6. Splenomegaly of unknown etiology. 7. Abnormal appearing sclerosis of all the bony structures. This finding is nonspecific and can be seen with a metabolic disorder such as chronic renal disease versus neoplastic disease. If clinically indicated, a PET CT is recommended for further evaluation. 8. Cardiomegaly. Zachery Villaseñor MD Chest X-Ray 03/25/16 1579 Signed Impressions: Service Date/Time: Friday, March 25, 2016 17:56 - CONCLUSION: 1. Cardiomegaly, probably with mild edema pattern and small pleural effusions. No pneumothorax. Jasmeet Gaspar MD Head CT 03/25/16 0000 Signed Impressions: Service Date/Time: Friday, March 25, 2016 17:35 - CONCLUSION: 1. No acute intracranial abnormality. Wellington Larose MD Objective Remarks GENERAL: Pleasant elderly female in no apparent distress sitting in recliner. SKIN: Warm and dry. HEAD: Atraumatic. Normocephalic. CARDIOVASCULAR: Regular rate and rhythm. RESPIRATORY: No accessory muscle use. Mildly coarse breath sounds at the bases but good air movement. GASTROINTESTINAL: Abdomen soft, non-tender, nondistended. MUSCULOSKELETAL: No lower extremity edema bilaterally. NEUROLOGICAL: Awake and alert. Appears confused. Normal speech. PSYCHIATRIC: Appropriate mood and affect; insight and judgment normal. Urinary Catheter: No Vascular Central Line Catheter: No A/P Problem List: (1) CHF (congestive heart failure) ICD Code: I50.9 Status: Acute (2) Elevated troponin ICD Code: R79.89 Status: Acute (3) Hypertensive urgency ICD Code: I16.0 Status: Acute (4) Leukocytosis ICD Code: D72.829 Status: Acute (5) Anemia ICD Code: D64.9 Status: Acute (6) H/O fall ICD Code: Z91.81 Status: Acute (7) Dementia ICD Code: F03.90 Status: Acute Assessment and Plan 89-year-old female with: CHF: Patient with increasing SOB. BNP 715. EKG personally interpreted with sinus rhythm, possible left ventricular hypertrophy. Chest x-ray personally interpreted with small pleural effusions, cardiomegaly, and possible mild edema pattern. -Patient given 40 mg IV Lasix. No further diuretic at this time. -Daily 81 mg aspirin started. -Echo with mild focal basal hypertrophy of the septum. Systolic function normal with EF of 55-60%. PA peak pressure 71 mmHg. Trace to mild regurgitation of the aortic valve and mitral valve. Tricuspid valve with mild regurgitation. -Telemetry -Lipid profile with good LDL of 70, HDL 40.4. Triglycerides only mildly elevated. Elevated troponin: Troponin 0.09-->0.10-->0.07. Likely demand related to CHF. Hypertensive urgency: Highest BP 217/84 at midnight. It is unclear if Clonidine was actually administered for this. BP improved at 136/81 at noon today. -Continue Metoprolol and Lisinopril. -Clonidine as needed. -Monitor BP. Leukocytosis: Resolved. 17.2--> 11.0. Likely related to CHF. -Monitor CBC Anemia: Patient has history of myelodysplasia. Hemoglobin 8.7-->7.7-->7.2. Last blood transfusion on 02/24/16. Patient was on Procrit for 8 years but it is no longer working. -Monitor CBC. Consider transfusion if Hb < 7.0 provided son consents. -Spoke with patient's son today regarding this. He is awaiting a call back from Dr Schultz, patient's .net programmer, regarding transfusion, prolongation of life, etc. Dementia/Fall: Patient's son states that prior to patient coming down to live with him he was unaware of the degree of her dementia which was likely being downplayed by her when he was alive. -Continue PT -SNF placement with which son is agreeable. Informed today that son desires Hospice consult which has been ordered. Hypothyroidism: Continue Synthroid. TSH elevated at 4.150. -Free T4 wnl. Free T3 low at 1.27. -Will not make any adjustment as patient refused thyroid medication this morning. DVT prevention; TEDs/SCDs. crop grain or livestock farm manager to arrange SNF placement. Written by Lexi Marroquin PA-C acting as scribe for Dr. Maguire on 03/27/16 at ~ 1145. The documentation accurately reflects the work and decisions performed face-to- face by me Dr. Maguire on 03/27/16 at ~1145. Problem Qualifiers (1) CHF (congestive heart failure): Qualified Code: I50.9 - Acute congestive heart failure, unspecified congestive heart failure type Lexi Marroquin Mar 27, 2016 14:28
[2016-03-27] MEDS: LATANOPROST 0.005% OPHT SOLN 2.5 ML BTL EACH EYE SCH (20:19)
[2016-03-28] VITALS: BP 154/63; PULSE 60; RESP 18; TEMP 95.7; O2SAT 100
[2016-03-28 04:00] VITALS: BP 160/75; PULSE 56; RESP 18; TEMP 96; O2SAT 99
[2016-03-28] MEDS: LEVOTHYROXINE SODIUM 25 MCG TAB PO SCH (06:15)
[2016-03-28 08:00] VITALS: BP 175/68; PULSE 59; RESP 18; TEMP 97; O2SAT 99
[2016-03-28 08:05] VITALS: O2SAT 99
[2016-03-28] MEDS ORDERED: METO25TA3 PO (10:47)
[2016-03-28] MEDS ORDERED: ASPI81CH3 CHEW (10:47)
[2016-03-28] MEDS ORDERED: LISI10TA3 PO (10:47)
--- NOTE | 2016-03-28 10:53 | HHI.DS ---
Discharge Summary Admission Date Mar 25, 2016 at 18:33 Discharge Date: Mar 28, 2016 Admitting Diagnosis New onset CHF (1) CHF (congestive heart failure) ICD Code: I50.9 Diagnosis: Principal (2) Elevated troponin ICD Code: R79.89 Diagnosis: Principal (3) Hypertensive urgency ICD Code: I16.0 Diagnosis: Principal (4) Leukocytosis ICD Code: D72.829 Diagnosis: Principal (5) Anemia ICD Code: D64.9 Diagnosis: Principal (6) H/O fall ICD Code: Z91.81 Diagnosis: Principal (7) Dementia ICD Code: F03.90 Diagnosis: Principal Procedures None Brief History - From Admission 89-year-old female with history of dementia, mitral valve replacement , myelodysplasia, hypothyroidism, glaucoma is admitted for heart failure. Patient states she has been short of breath; admits to feeling stuffy. He spoke with her son and [id number]. Son states she has become increasingly short of breath over the past few days. She has no history of heart disease. She had a fall on 03/17/16 and was seen in the ED. CT showed hematoma. Patient recently moved down from [facility] and is living with her son. She was initially doing well, but [id number] states the patient's legs have been hurting and she's been tired and more confused and her balance is worse. She states she has not been eating much at home. Patient's son states that she sees Dr. Burgos and hemoglobin was 6.6 a week prior to transfusion of 2 units blood on 02/24/16. Hemoglobin was 9.0 this past . CBC/BMP: 03/27/16 0910 03/27/16 0910 Significant Findings Laboratory Tests Test 03/25/16 03/25/16 03/25/16 03/25/16 17:00 17:04 20:55 21:35 White Blood Count 17.2 TH/MM3 (4.0-11.0) Corrected White Blood Count 16.4 TH/MM3 (4.0-11.0) Red Blood Count 3.04 MIL/MM3 (4.00-5.30) Hemoglobin 8.7 GM/DL (11.6-15.3) Hematocrit 26.3 % (35.0-46.0) Red Cell Distribution Width 18.0 % (11.6-17.2) Neutrophils (%) (Auto) 70.5 % (16.0-70.0) Monocytes (%) (Auto) 14.6 % (0.0-8.0) Basophils (%) (Auto) 3.8 % (0.0-2.0) Neutrophils # (Auto) 12.0 TH/MM3 (1.8-7.7) Monocytes # (Auto) 2.5 TH/MM3 (0-0.9) Basophils # (Auto) 0.7 TH/MM3 (0-0.2) Band Neutrophils % 25 % (0-6) Lymphocytes % 6 % (9-44) Monocytes % 9 % (0-8) Neutrophils # (Manual) 13.8 TH/MM3 (1.8-7.7) Metamyelocytes 8 % (0-1) Myelocytes 7 % (0-0) Nucleated Red Blood Cells 5 /100 WBC (0-0) Prothrombin Time 11.8 SEC (9.8-11.6) Blood Urea Nitrogen 20 MG/DL (7-18) Calcium Level 7.9 MG/DL (8.5-10.1) Troponin I 0.09 NG/ML (0.02-0.05) B-Type Natriuretic Peptide 715 PG/ML (0-100) Arterial Blood pH 7.50 (7.380-7.420) Arterial Blood Partial 31 mmHG (38-42) Pressure CO2 Arterial Blood Oxygen Content 10.5 Vol % (12.0-20.0) Blood Gas Hemoglobin 8.0 G/DL (12.0-16.0) D-Dimer Quantitative (PE/DVT) 1.37 MG/L FEU (0.00-0.50) Urine Occult Blood TRACE (NEG) Test 03/25/16 03/26/16 03/27/16 23:30 06:05 09:10 Troponin I 0.10 NG/ML 0.07 NG/ML (0.02-0.05) (0.02-0.05) Thyroid Stimulating Hormone 4.150 uIU/ML 3rd Gen (0.358-3.740) White Blood Count 12.5 TH/MM3 (4.0-11.0) Corrected White Blood Count 11.9 TH/MM3 (4.0-11.0) Red Blood Count 2.72 MIL/MM3 2.58 MIL/MM3 (4.00-5.30) (4.00-5.30) Hemoglobin 7.7 GM/DL 7.2 GM/DL (11.6-15.3) (11.6-15.3) Hematocrit 23.8 % 22.5 % (35.0-46.0) (35.0-46.0) Red Cell Distribution Width 17.6 % 18.0 % (11.6-17.2) (11.6-17.2) Neutrophils (%) (Auto) 71.9 % 72.7 % (16.0-70.0) (16.0-70.0) Monocytes (%) (Auto) 15.6 % 13.6 % (0.0-8.0) (0.0-8.0) Neutrophils # (Auto) 8.9 TH/MM3 8.1 TH/MM3 (1.8-7.7) (1.8-7.7) Monocytes # (Auto) 2.0 TH/MM3 1.5 TH/MM3 (0-0.9) (0-0.9) Band Neutrophils % 19 % (0-6) 10 % (0-6) Lymphocytes % 5 % (9-44) Monocytes % 15 % (0-8) Neutrophils # (Manual) 9.5 TH/MM3 (1.8-7.7) Metamyelocytes 2 % (0-1) 4 % (0-1) Myelocytes 3 % (0-0) 3 % (0-0) Nucleated Red Blood Cells 5 /100 WBC 4 /100 WBC (0-0) (0-0) Estimat Glomerular Filtration 87 ML/MIN (>89) Rate Calcium Level 7.6 MG/DL 7.5 MG/DL (8.5-10.1) (8.5-10.1) Triglycerides Level 159 MG/DL (42-150) Mean Platelet Volume 6.7 FL (7.0-11.0) Tear Drop Cells 1+ (NORMAL) Blood Urea Nitrogen 21 MG/DL (7-18) Free Triiodothyronine (T3) 1.27 PG/ML pg/dL (2.18-3.98) Imaging Last Impressions CT Angiography 03/26/16 0000 Signed Impressions: Service Date/Time: Saturday, March 26, 2016 01:52 - CONCLUSION: 1. No evidence of pulmonary embolism. Prominent pulmonary arteries bilaterally most likely related to COPD. 2. Central lobar emphysema bilaterally characteristic for COPD. 3. Scattered interstitial infiltrates in the right upper lung. 4. Multiple subcentimeter scattered pulmonary nodules in the right upper lung and right lower lung. The largest pulmonary nodule measures 7 mm in the right lower lung. 5. Small bilateral effusions. 6. Splenomegaly of unknown etiology. 7. Abnormal appearing sclerosis of all the bony structures. This finding is nonspecific and can be seen with a metabolic disorder such as chronic renal disease versus neoplastic disease. If clinically indicated, a PET CT is recommended for further evaluation. 8. Cardiomegaly. Zachery Villaseñor MD Chest X-Ray 03/25/16 1649 Signed Impressions: Service Date/Time: Friday, March 25, 2016 17:56 - CONCLUSION: 1. Cardiomegaly, probably with mild edema pattern and small pleural effusions. No pneumothorax. Jasmeet Gaspar MD Head CT 03/25/16 0000 Signed Impressions: Service Date/Time: Friday, March 25, 2016 17:35 - CONCLUSION: 1. No acute intracranial abnormality. Wellington Larose MD PE at Discharge GENERAL: Pleasant elderly female in no apparent distress sitting in recliner. SKIN: Warm and dry. HEAD: Atraumatic. Normocephalic. CARDIOVASCULAR: Regular rate and rhythm. RESPIRATORY: No accessory muscle use. Mildly coarse breath sounds at the bases but good air movement. GASTROINTESTINAL: Abdomen soft, non-tender, nondistended. MUSCULOSKELETAL: No lower extremity edema bilaterally. NEUROLOGICAL: Awake and alert. Appears confused. Normal speech. PSYCHIATRIC: Appropriate mood and affect; insight and judgment normal. Pt update on day of discharge Patient seen and evaluated today for discharge planning. Discharge plans discussed with patient, son and with case management as well as physical therapy. Overnight. Patient breathing well. Still concerned about her glasses. Hospital Course Patient has mild dysplastic disorder and no transfusion was recommended. She does have congestive heart failure and had elevated BNP with echocardiogram which showed very elevated pulmonary artery pressures at 71 mmHg. Patient did respond to Lasix IV. Her blood pressure improved. Her cardiac troponins were elevated however systolic to demand related congestive heart failure no further workup was required. Patient also had elevated blood pressures which improved with the Lasix, metoprolol and lisinopril. Clonidine was given as needed. Her dementia was at baseline. Patient's family did agree to investigate for hospice at longterm facility placement at home and or hospice at home. This was completed. The patient's family did desire to take her home if this was the possibility. Patient did have a DO NOT RESUSCITATE order in place. She had abnormal thyroid studies and refuses to take her medications. Given this patient's chronic illness the patient was managed conservatively Pt Condition on Discharge: Good Discharge Disposition: Hospice/ Home Discharge Time: > 30 minutes Discharge Instructions DIET: Follow Instructions for: As Tolerated, No Restrictions Activities you can perform: Regular-No Restrictions New Medications: Aspirin (Aspirin 81 Low Dose) 81 Mg Chew 81 MG CHEW DAILY heart #30 TAB Lisinopril (Lisinopril) 10 Mg Tab 10 MG PO DAILY heart #31 TAB Metoprolol Tartrate (Metoprolol Tartrate) 25 Mg Tab 12.5 MG PO Q12HR heart #62 TAB Continued Medications: Brimonidine-Timolol Opth Drops (Combigan Opth Drops) 0.2-0.5% Soln 1 DROP EACH EYE Q12HR Glaucoma Ref 0 BOTTLE Latanoprost Opth Drops (Latanoprost Opth Drops) 0.005% Drops 1 DROP EACH EYE HS Refrigerate until opened. Glaucoma #2.5 Ref 0 ML Levothyroxine (Synthroid) 25 Mcg Tab 25 MCG PO DAILY Thyroid #30 Ref 0 TAB Mansi Valenzuela MD Mar 28, 2016 10:53
[2016-03-28] MEDS: TIMOLOL MALEATE 0.5% OPHT SOLN 5 ML BTL EACH EYE SCH (11:14)
[2016-03-28] MEDS: SODIUM CHLORIDE 0.9% FLUSH 5 ML FLUSH IVF SCH (11:14)
[2016-03-28] MEDS: BRIMONIDINE TARTRATE 0.2% OPHT SOLN 5 ML BTL EACH EYE SCH (11:14)
[2016-03-28] MEDS: LISINOPRIL 10 MG TAB PO SCH (11:15)
[2016-03-28] MEDS: ASPIRIN 81 MG CHEW TAB CHEW SCH (11:15)
[2016-03-28] MEDS: METOPROLOL TARTRATE 25 MG TAB PO SCH (11:15)
== END 2016-03-28 13:29 | disposition hospice, home (50) | DRG 293 ==
LOC: PHED 15:17 → PHEDA 18:33 → PHEDH 22:33 → PH3B 03-26 00:18
PROVIDERS: ADMIT Hospitalist; ATTEND Hospitalist
DX: I50.9 Heart failure, unspecified (principal); F03.90 Unspecified dementia, unspecified severity, without behavioral disturbance, psychotic disturbance, mood disturbance, and anxiety; D64.9 Anemia, unspecified; D46.9 Myelodysplastic syndrome, unspecified; I16.0 Hypertensive urgency; R74.8 Abnormal levels of other serum enzymes; D72.829 Elevated white blood cell count, unspecified; Z91.81 History of falling; Z95.2 Presence of prosthetic heart valve; H40.9 Unspecified glaucoma; E03.9 Hypothyroidism, unspecified; Z66 Do not resuscitate
CPT/HCPCS: 36600; 70450; 71010; 71275; 80048; 80061; 81001; 82550; 82805; 83880; 84439; 84443; 84481; 84484; 85007; 85027; 85379; 85610; 85730; 87040; 87804; 93005; 93306; J1940; Q9967